=== PATIENT | male | born 2000 | race Caucasian/White ===

== ENCOUNTER 2022-07-28 13:22 | Inpatient (IN) | payer BC, MEDICAID ==
[~2022-07-28] VITALS: Ht 170.2 cm; Wt 73.6 kg
[2022-07-28] MEDS ORDERED: METH18TA PO (13:34)
[2022-07-28] MEDS ORDERED: MELA5TAB40 PO (13:34)
[2022-07-28] MEDS ORDERED: DIPH25TA51 PO (13:34)
[2022-07-28] MEDS ORDERED: DOXY100C5 PO (13:34)
[2022-07-28] MEDS ORDERED: CETI-450 PO (13:34)
[2022-07-28] MEDS ORDERED: LITH300C3 PO (13:34)
[2022-07-28 14:49] LABS: BASOPHILS % (AUTO) 0.8 % (0.0-2.0); EOSINOPHILS % (AUTO) 2.7 % (1.0-6.0); HEMATOCRIT 42.8 % (41-53); HEMOGLOBIN 14.9 g/dL (13.5-17.5); LYMPHOCYTES # (AUTO) 3.2 K/uL (1.0-4.8); LYMPHOCYTES % (AUTO) 32.4 % (22.0-44.0); MEAN CORPUSCULAR HEMOGLOBIN 31.7 pg (26.0-34.0); MEAN CORPUSCULAR HGB CONC 34.8 G/dL (31.0-37.0); MEAN CORPUSCULAR VOLUME 91 fL (80-100); MONOCYTES # (AUTO) 0.9 K/uL (0.1-1.0); MONOCYTES % (AUTO) 9.5 % (2.0-9.0); NEUTROPHILS # (AUTO) 5.3 K/uL (1.8-7.7); NEUTROPHILS % (AUTO) 54.6 % (40.0-70.0); PLATELET COUNT (AUTO) 683 K/uL (150-450); RED BLOOD CELL COUNT(AUTO) 4.69 MIL/uL (4.50-5.90); RED CELL DISTRIBUTION WIDTH 12.8 % (11.5-14.5)
[2022-07-28 14:57] LABS: ANION GAP 8 mmol/L (8-16); CARBON DIOXIDE 27 mmol/L (22-29); CHLORIDE 103 mmol/L (98-107); CREATININE 0.82 mg/dL (0.60-1.30); GLOMERULAR FILTR. RATE CALC > 60 mL/min (>60); GLUCOSE,RANDOM 89 mg/dL (70-110); POTASSIUM 4.1 mmol/L (3.5-5.1); SODIUM SERUM 138 mmol/L (136-145)
[2022-07-28 15:03] LABS: ALANINE AMINOTRANSFERASE 35 U/L (12-78); ALBUMIN 3.5 g/dL (3.4-5.0); ALKALINE PHOSPHATASE 51 U/L (46-116); ASPARTATE AMINOTRANSFERASE 21 U/L (15-37); BILIRUBIN,TOTAL 0.4 mg/dL (0.1-1.0); LITHIUM < 0.20 mmol/L (0.60-1.20); TOTAL PROTEIN, SERUM 7.1 g/dL (6.4-8.2)
[2022-07-28 16:20] LABS: AMPHET/METH SCREEN,URINE NEGATIVE (NEGATIVE); BARBITURATE SCREEN, URINE NEGATIVE (NEGATIVE); BENZODIAZEPINES SCREEN,URINE NEGATIVE (NEGATIVE); CANNABINOID SCREEN,URINE NEGATIVE (NEGATIVE); COCAINE SCREEN,URINE NEGATIVE (NEGATIVE); METHADONE SCREEN, URINE NEGATIVE (NEGATIVE); OPIATE SCREEN,URINE NEGATIVE (NEGATIVE); PHENCYCLIDINE SCREEN,URINE NEGATIVE (NEGATIVE)
[2022-07-28] MEDS ORDERED: ACETAMINOPHEN 325 MG TABLET PO PRN (17:30)
[2022-07-28] MEDS ORDERED: MAG HYDROX/AL HYDROX/SIMETH ES 30 ML SUSPENSION UDCUP PO PRN ×2 (17:30→21:30)
[2022-07-28] MEDS ORDERED: MAGNESIUM HYDROXIDE SUSPENSION 30 ML UDCUP PO PRN ×2 (17:30→21:30)
[2022-07-28 18:36] LABS: COVID AG,FIA SOURCE NASOPHARYNGEAL
[2022-07-28] MEDS: NICOTINE 21 MG/24 HOUR PATCH TD SCH (18:49)
[2022-07-28] MEDS: ZOLPIDEM TARTRATE 10 MG TABLET PO PRN (18:50)
[2022-07-28] MEDS: BENZTROPINE MESYLATE 1 MG TABLET PO SCH (20:44)
[2022-07-28] MEDS: LITHIUM CARBONATE 450 MG ER TABLET PO SCH (20:45)
[2022-07-28] MEDS ORDERED: QUEtiapine FUMARATE 25 MG TABLET PO PRN (21:15)
[2022-07-28] MEDS ORDERED: CloNIDine HCL 0.1 MG TABLET PO PRN (21:30)
[2022-07-28] MEDS ORDERED: ONDANSETRON HCL 4 MG TABLET PO PRN (21:30)
[2022-07-28] MEDS ORDERED: ALBUTEROL SULFATE HFA 90 MCG/PUFF 8 GM INHALER IH PRN (21:30)
[2022-07-28] MEDS ORDERED: DOCUSATE SODIUM 100 MG CAPSULE PO PRN (21:30)
[2022-07-28] MEDS ORDERED: IBUPROFEN 400 MG TABLET PO PRN (21:30)
[2022-07-28] MEDS ORDERED: GuaiFENesin/D-METHORPHAN [SUGAR-FREE] 200-20MG/10 ML SYRUP UDCUP PO PRN (21:30)
[2022-07-28] MEDS ORDERED: LOPERAMIDE HCL 2 MG CAPSULE PO PRN (21:30)
[2022-07-28] MEDS ORDERED: PETROLATUM,WHITE 28 GM JELLY TP PRN (21:30)
[2022-07-28 22:03] VITALS: BP 126/64
[2022-07-28 22:47] VITALS: BP 126/64
[2022-07-29] MEDS: BENZTROPINE MESYLATE 1 MG TABLET PO SCH ×2 (08:01→16:36)
[2022-07-29] MEDS: NICOTINE 21 MG/24 HOUR PATCH TD SCH (08:02)
[2022-07-29 08:12] VITALS: BP 108/54
[2022-07-29 09:09] LABS: BASOPHILS % (AUTO) 0.8 % (0.0-2.0); EOSINOPHILS % (AUTO) 9.2 % (1.0-6.0); HEMATOCRIT 43.9 % (41-53); HEMOGLOBIN 14.7 g/dL (13.5-17.5); LYMPHOCYTES # (AUTO) 2.8 K/uL (1.0-4.8); LYMPHOCYTES % (AUTO) 43.4 % (22.0-44.0); MEAN CORPUSCULAR HEMOGLOBIN 30.9 pg (26.0-34.0); MEAN CORPUSCULAR HGB CONC 33.6 G/dL (31.0-37.0); MEAN CORPUSCULAR VOLUME 92 fL (80-100); MONOCYTES # (AUTO) 0.6 K/uL (0.1-1.0); MONOCYTES % (AUTO) 9.9 % (2.0-9.0); NEUTROPHILS # (AUTO) 2.3 K/uL (1.8-7.7); NEUTROPHILS % (AUTO) 36.7 % (40.0-70.0); PLATELET COUNT (AUTO) 617 K/uL (150-450); RED BLOOD CELL COUNT(AUTO) 4.77 MIL/uL (4.50-5.90); RED CELL DISTRIBUTION WIDTH 12.5 % (11.5-14.5)
[2022-07-29 09:18] LABS: HEMOGLOBIN A1C 4.8 % (3.8-5.6)
[2022-07-29 09:38] VITALS: BP 108/54
[2022-07-29 09:41] LABS: ALANINE AMINOTRANSFERASE 34 U/L (12-78); ALBUMIN 3.3 g/dL (3.4-5.0); ALKALINE PHOSPHATASE 50 U/L (46-116); ANION GAP 8 mmol/L (8-16); ASPARTATE AMINOTRANSFERASE 17 U/L (15-37); BILIRUBIN,TOTAL 0.4 mg/dL (0.1-1.0); CALCIUM, TOTAL 9.1 mg/dL (8.8-10.5); CARBON DIOXIDE 27 mmol/L (22-29); CHLORIDE 104 mmol/L (98-107); CREATININE 0.91 mg/dL (0.60-1.30); GLOMERULAR FILTR. RATE CALC > 60 mL/min (>60); GLUCOSE,RANDOM 82 mg/dL (70-110); POTASSIUM 4.1 mmol/L (3.5-5.1); SODIUM SERUM 139 mmol/L (136-145); THYROID STIMULATING HORMONE 0.42 uIU/mL (0.36-3.74); TOTAL PROTEIN, SERUM 6.8 g/dL (6.4-8.2)
[2022-07-29 12:35] LABS: CHOL/HDL RATIO 4.8 (4.2-7.3); CHOLESTEROL 159 mg/dL (131-200); HDL CHOLESTEROL 33 mg/dL (40-60); LDL CHOL (CALC.) 87 mg/dL (0-130); TRIGLYCERIDES 196 mg/dL (15-150)
[2022-07-29 20:28] VITALS: BP 121/61
[2022-07-29 20:47] VITALS: BP 121/61
[2022-07-29] MEDS: ZOLPIDEM TARTRATE 10 MG TABLET PO PRN (20:50)
[2022-07-29] MEDS: LITHIUM CARBONATE 450 MG ER TABLET PO SCH (21:19)
[2022-07-30 08:00] VITALS: BP 131/71
[2022-07-30] MEDS: BENZTROPINE MESYLATE 1 MG TABLET PO SCH ×2 (10:41→17:16)
[2022-07-30] MEDS: METHYLPHENIDATE HCL 10 MG TABLET PO SCH ×2 (10:41→14:43)
[2022-07-30] MEDS: NICOTINE 21 MG/24 HOUR PATCH TD SCH (10:42)
[2022-07-30] MEDS: NALTREXONE HCL 50 MG TABLET PO SCH (10:43)
[2022-07-30 20:05] VITALS: BP 138/86
[2022-07-30] MEDS: LITHIUM CARBONATE 450 MG ER TABLET PO SCH (20:27)
[2022-07-30] MEDS: ZOLPIDEM TARTRATE 10 MG TABLET PO PRN (20:27)
[2022-07-31] MEDS: METHYLPHENIDATE HCL 10 MG TABLET PO SCH ×2 (08:47→12:24)
[2022-07-31] MEDS: NALTREXONE HCL 50 MG TABLET PO SCH (08:47)
[2022-07-31] MEDS: BENZTROPINE MESYLATE 1 MG TABLET PO SCH ×2 (08:47→16:26)
[2022-07-31] MEDS: NICOTINE 21 MG/24 HOUR PATCH TD SCH (08:49)
[2022-07-31 09:59] VITALS: BP 117/69
== END 2022-07-31 17:36 | disposition home or self-care (01) | DRG 885 ==
LOC: EMS 13:26 → 3EC 21:37
PROVIDERS: ADMIT Psychiatry & Neurology Child & Adolescent Psychiatry; ATTEND Psychiatry & Neurology Child & Adolescent Psychiatry
DX: F31.9 Bipolar disorder, unspecified (principal); F20.9 Schizophrenia, unspecified; Z59.00 Homelessness unspecified; J30.9 Allergic rhinitis, unspecified; G47.00 Insomnia, unspecified; F10.10 Alcohol abuse, uncomplicated; Y90.0 Blood alcohol level of less than 20 mg/100 ml; F90.9 Attention-deficit hyperactivity disorder, unspecified type; Z20.822 Contact with and (suspected) exposure to COVID-19; Z87.891 Personal history of nicotine dependence; Z88.8 Allergy status to other drugs, medicaments and biological substances; Z79.899 Other long term (current) drug therapy; F19.10 Other psychoactive substance abuse, uncomplicated
CPT/HCPCS: 80053; 80061; 80178; 80307; 83036; 84443; 85025; 87081; 99285; G0480

== ENCOUNTER 2022-10-12 21:22 | Inpatient (IN) | payer BC, MEDICAID ==
[~2022-10-12] VITALS: Ht 170.2 cm; Wt 75.7 kg
[2022-10-12 22:56] LABS: COVID AG,FIA SOURCE NASAL SWAB
[2022-10-12] MEDS ORDERED: HALOPERIDOL 5 MG TABLET PO PRN (23:15)
[2022-10-12] MEDS ORDERED: LORazepam 2 MG TABLET PO PRN (23:15)
[2022-10-12] MEDS ORDERED: ZOLPIDEM TARTRATE 10 MG TABLET PO PRN (23:15)
[2022-10-12 23:16] LABS: BASOPHILS % (AUTO) 0.3 % (0.0-2.0); EOSINOPHILS % (AUTO) 1.5 % (1.0-6.0); HEMATOCRIT 46.7 % (41-53); HEMOGLOBIN 15.5 g/dL (13.5-17.5); LYMPHOCYTES # (AUTO) 3.8 K/uL (1.0-4.8); LYMPHOCYTES % (AUTO) 29.4 % (22.0-44.0); MEAN CORPUSCULAR HGB CONC 33.1 G/dL (31.0-37.0); MEAN CORPUSCULAR VOLUME 91 fL (80-100); MONOCYTES % (AUTO) 7.9 % (2.0-9.0); NEUTROPHILS # (AUTO) 7.8 K/uL (1.8-7.7); NEUTROPHILS % (AUTO) 60.9 % (40.0-70.0); PLATELET COUNT (AUTO) 527 K/uL (150-450); RED BLOOD CELL COUNT(AUTO) 5.17 MIL/uL (4.50-5.90)
[2022-10-12 23:26] LABS: ANION GAP 9 mmol/L (8-16); CALCIUM, TOTAL 8.3 mg/dL (8.8-10.5); CARBON DIOXIDE 27 mmol/L (22-29); CHLORIDE 103 mmol/L (98-107); CREATININE 0.81 mg/dL (0.60-1.30); GLOMERULAR FILTR. RATE CALC > 60 mL/min (>60); GLUCOSE,RANDOM 135 mg/dL (70-110); POTASSIUM 3.8 mmol/L (3.5-5.1); SODIUM SERUM 139 mmol/L (136-145)
[2022-10-12 23:33] LABS: ALANINE AMINOTRANSFERASE 14 U/L (12-78); ALBUMIN 3.4 g/dL (3.4-5.0); ALKALINE PHOSPHATASE 60 U/L (46-116); ASPARTATE AMINOTRANSFERASE 15 U/L (15-37); BILIRUBIN,TOTAL 0.3 mg/dL (0.1-1.0); TOTAL PROTEIN, SERUM 6.6 g/dL (6.4-8.2)
[2022-10-13 00:51] VITALS: BP 109/67; PULSE 68; RESP 18; TEMP 97.4
[2022-10-13] MEDS ORDERED: ONDANSETRON HCL 4 MG TABLET PO PRN (06:15)
[2022-10-13] MEDS ORDERED: DOCUSATE SODIUM 100 MG CAPSULE PO PRN (06:15)
[2022-10-13] MEDS ORDERED: ACETAMINOPHEN 325 MG TABLET PO PRN (06:15)
[2022-10-13] MEDS ORDERED: IBUPROFEN 400 MG TABLET PO PRN (06:15)
[2022-10-13] MEDS ORDERED: ALBUTEROL SULFATE HFA 90 MCG/PUFF 8 GM INHALER IH PRN (06:15)
[2022-10-13] MEDS ORDERED: GuaiFENesin/D-METHORPHAN [SUGAR-FREE] 200-20MG/10 ML SYRUP UDCUP PO PRN (06:15)
[2022-10-13] MEDS ORDERED: LOPERAMIDE HCL 2 MG CAPSULE PO PRN (06:15)
[2022-10-13] MEDS ORDERED: MAGNESIUM HYDROXIDE SUSPENSION 30 ML UDCUP PO PRN (06:15)
[2022-10-13] MEDS ORDERED: CloNIDine HCL 0.1 MG TABLET PO PRN (06:15)
[2022-10-13] MEDS ORDERED: MAG HYDROX/AL HYDROX/SIMETH ES 30 ML SUSPENSION UDCUP PO PRN (06:15)
[2022-10-13] MEDS ORDERED: NICOTINE 14 MG/24 HOUR PATCH TD PRN (06:15)
[2022-10-13] MEDS ORDERED: PETROLATUM,WHITE 28 GM JELLY TP PRN (06:15)
[2022-10-13] MEDS ORDERED: POLYETHYLENE GLYCOL 3350 17 GM PACKET PO PRN (07:15)
[2022-10-13 08:11] VITALS: BP 119/63; PULSE 65; RESP 18; TEMP 97.6
[2022-10-13] MEDS: BENZTROPINE MESYLATE 0.5 MG TABLET PO SCH ×2 (08:57→17:11)
[2022-10-13] MEDS: NALTREXONE HCL 50 MG TABLET PO SCH (08:57)
[2022-10-13] MEDS: DOCUSATE SODIUM 100 MG/10 ML LIQUID UDCUP PO SCH ×2 (08:57→17:11)
[2022-10-13] MEDS: LITHIUM CARBONATE 450 MG ER TABLET PO SCH ×2 (08:57→17:11)
[2022-10-13 09:21] LABS: BASOPHILS % (AUTO) 0.3 % (0.0-2.0); EOSINOPHILS % (AUTO) 2.2 % (1.0-6.0); HEMATOCRIT 48.6 % (41-53); HEMOGLOBIN 16.7 g/dL (13.5-17.5); LYMPHOCYTES % (AUTO) 27.2 % (22.0-44.0); MEAN CORPUSCULAR HEMOGLOBIN 31.2 pg (26.0-34.0); MEAN CORPUSCULAR HGB CONC 34.4 G/dL (31.0-37.0); MEAN CORPUSCULAR VOLUME 91 fL (80-100); MONOCYTES # (AUTO) 1.1 K/uL (0.1-1.0); MONOCYTES % (AUTO) 9.8 % (2.0-9.0); NEUTROPHILS # (AUTO) 6.8 K/uL (1.8-7.7); NEUTROPHILS % (AUTO) 60.5 % (40.0-70.0); PLATELET COUNT (AUTO) 478 K/uL (150-450); RED BLOOD CELL COUNT(AUTO) 5.37 MIL/uL (4.50-5.90); RED CELL DISTRIBUTION WIDTH 12.9 % (11.5-14.5)
[2022-10-13 09:30] LABS: HEMOGLOBIN A1C 4.9 % (3.8-5.6)
[2022-10-13 09:42] LABS: ALANINE AMINOTRANSFERASE 13 U/L (12-78); ALBUMIN 3.3 g/dL (3.4-5.0); ALKALINE PHOSPHATASE 65 U/L (46-116); ANION GAP 4 mmol/L (8-16); ASPARTATE AMINOTRANSFERASE 16 U/L (15-37); BILIRUBIN,TOTAL 0.4 mg/dL (0.1-1.0); CALCIUM, TOTAL 8.6 mg/dL (8.8-10.5); CARBON DIOXIDE 32 mmol/L (22-29); CHLORIDE 106 mmol/L (98-107); CREATININE 0.94 mg/dL (0.60-1.30); GLOMERULAR FILTR. RATE CALC > 60 mL/min (>60); GLUCOSE,RANDOM 98 mg/dL (70-110); POTASSIUM 4.4 mmol/L (3.5-5.1); SODIUM SERUM 142 mmol/L (136-145); THYROID STIMULATING HORMONE 1.13 uIU/mL (0.36-3.74); TOTAL PROTEIN, SERUM 6.9 g/dL (6.4-8.2)
[2022-10-13] MEDS ORDERED: CloZAPine 25 MG RAPDIS TABLET PO SCH (10:00)
[2022-10-13] MEDS ORDERED: CloZAPine 25 MG RAPDIS TABLET PO ONE (10:15)
[2022-10-13] MEDS: CloZAPine 100 MG RAPDIS TABLET PO SCH (20:25)
[2022-10-13] MEDS: CloZAPine 25 MG RAPDIS TABLET PO SCH (20:25)
[2022-10-13 21:49] VITALS: BP 116/68; PULSE 70; RESP 18; TEMP 97.8
[2022-10-14 08:32] LABS: CHOL/HDL RATIO 4.2 (4.2-7.3)
[2022-10-14] MEDS: BENZTROPINE MESYLATE 0.5 MG TABLET PO SCH ×2 (08:45→18:03)
[2022-10-14] MEDS: CloZAPine 100 MG RAPDIS TABLET PO SCH ×2 (08:45→21:31)
[2022-10-14] MEDS: DOCUSATE SODIUM 100 MG/10 ML LIQUID UDCUP PO SCH ×2 (08:46→18:04)
[2022-10-14] MEDS: NALTREXONE HCL 50 MG TABLET PO SCH (08:47)
[2022-10-14] MEDS: LITHIUM CARBONATE 450 MG ER TABLET PO SCH ×2 (09:20→18:03)
[2022-10-14 10:03] VITALS: BP 128/63; PULSE 56; RESP 18; TEMP 97.5
[2022-10-14] MEDS: CloZAPine 25 MG RAPDIS TABLET PO SCH (21:31)
[2022-10-14 21:46] VITALS: BP 131/80; PULSE 105; RESP 20; TEMP 97.8
[2022-10-15 08:30] VITALS: BP 124/68; PULSE 73; RESP 18; TEMP 97.8
[2022-10-15] MEDS: LITHIUM CARBONATE 450 MG ER TABLET PO SCH ×2 (10:08→16:29)
[2022-10-15] MEDS: BENZTROPINE MESYLATE 0.5 MG TABLET PO SCH ×2 (10:08→16:28)
[2022-10-15] MEDS: DOCUSATE SODIUM 100 MG/10 ML LIQUID UDCUP PO SCH ×2 (10:08→16:28)
[2022-10-15] MEDS: NALTREXONE HCL 50 MG TABLET PO SCH (10:08)
[2022-10-15] MEDS: CloZAPine 100 MG RAPDIS TABLET PO SCH (20:55)
[2022-10-15] MEDS: CloZAPine 25 MG RAPDIS TABLET PO SCH (20:55)
[2022-10-15 22:21] VITALS: BP 119/78; PULSE 92; RESP 16; TEMP 98.5
[2022-10-16] MEDS: BENZTROPINE MESYLATE 0.5 MG TABLET PO SCH (08:37)
[2022-10-16] MEDS: NALTREXONE HCL 50 MG TABLET PO SCH (08:37)
[2022-10-16] MEDS: DOCUSATE SODIUM 100 MG/10 ML LIQUID UDCUP PO SCH (08:37)
[2022-10-16] MEDS: LITHIUM CARBONATE 450 MG ER TABLET PO SCH (08:37)
[2022-10-16 09:26] VITALS: BP 99/69; PULSE 67; RESP 17; TEMP 97.9
== END 2022-10-16 14:05 | disposition home or self-care (01) | DRG 885 ==
LOC: EMS 21:24 → 3EC 10-13 00:15 → 3EI 10-15 00:16
PROVIDERS: ADMIT Psychiatry & Neurology Child & Adolescent Psychiatry; ATTEND Psychiatry & Neurology Child & Adolescent Psychiatry
DX: F31.60 Bipolar disorder, current episode mixed, unspecified (principal); F41.9 Anxiety disorder, unspecified; F90.9 Attention-deficit hyperactivity disorder, unspecified type; F12.90 Cannabis use, unspecified, uncomplicated; F19.10 Other psychoactive substance abuse, uncomplicated; D72.829 Elevated white blood cell count, unspecified; Z20.822 Contact with and (suspected) exposure to COVID-19; F10.10 Alcohol abuse, uncomplicated; R73.9 Hyperglycemia, unspecified; Z59.00 Homelessness unspecified
CPT/HCPCS: 80053; 80061; 83036; 84443; 85025; 87081; 99285; G0480